=== PATIENT | male | born 1990 | race Caucasian/White ===

== ENCOUNTER 2018-03-03 18:34 | Emergency (ER) | payer OTHER ==
[2018-03-03] MEDS ORDERED: KETOROLAC 30 MG/ML 1 ML VIAL IVP STA (18:53)
[2018-03-03] MEDS ORDERED: SODIUM CHLORIDE 0.9% 1,000 ML IV ONE (18:53)
[2018-03-03] MEDS ORDERED: ONDANSETRON 4 MG/2 ML VIAL IVP STA (18:53)
--- NOTE | 2018-03-03 18:56 | ED ---
Abdominal Pain HPI - General Chief Complaint: Abdominal Pain Stated Complaint: kidney stones Time Seen by Provider: 03/03/18 18:48 Source: patient Mode of arrival: ambulatory Limitations: no limitations - History of Present Illness Initial Comments: 27-year-old male presenting with 3 days of right flank pain radiating to his right lower quadrant. Patient states it's been accompanied by urinary hesitancy and nausea. He states the pain is sharp stabbing has been gradually worsening. Patient states he has a history of 3 lithotripsies and stent placement. This was last done 6 months prior. Denies any fevers chills. Denies any hematuria. - Related Data Previous Rx's Medication Instructions Recorded Ibuprofen [Motrin] 600 mg PO Q6HR PRN #20 tab 03/03/18 Allergies Allergy/AdvReac Type Severity Reaction Status Date / Time Penicillins Allergy Unknown Verified 03/03/18 18:45 Review of Systems ROS Statement: Those systems with pertinent positive or pertinent negative responses have been documented in the HPI. Review of Systems Constitutional: Denies fever, chills Eyes: Denies change in vision, Denies pain Ears, nose, mouth, throat: Denies headaches, Denies sore throat Cardiovascular: Denies chest pain. Denies palpitations Respiratory: Denies shortness of breath, Denies cough Gastrointestinal: Positive abdominal pain. Denies nausea, vomiting, diarrhea. Genitourinary: Denies hematuria, Denies infections. Positive dysuria Musculoskeletal: Positive flank pain, Denies swelling Integumentary: Denies rash Neurological: Denies headache, focal weakness, focal numbness Psychiatric: Denies anxiety, Denies depression Hematologic/Lymphatic: Denies easy bleeding or bruising ROS Other: All systems not noted in ROS Statement are negative. Past Medical History Additional Past Medical History / Comment(s): kidney stone History of Any Multi-Drug Resistant Organisms: None Reported Past Surgical History: Appendectomy Additional Past Surgical History / Comment(s): lithotripsy Past Psychological History: No Psychological Hx Reported Smoking Status: Current some day smoker Past Alcohol Use History: None Reported Past Drug Use History: Marijuana General Exam - General Exam Comments Initial Comments: General: Awake, alert, No acute Distress HENT: Normocephalic. Atraumatic Eyes: PERRL. EOMI. No scleral icterus. No injected conjunctiva Neck: Full ROM Chest/Lungs: Clear to auscultation bilaterally. No wheezing, rhonchi, or rales Cardiac: Regular rate, rhythm. No murmurs or rubs Abdomen/GI: Soft, nontender, nondistended. No rebound, guarding, or rigidity.Positive Murali's sign on right. CVA tenderness on right. Musculoskeletal: Full ROM Skin: Warm, dry, intact Neurologic: A/Ox3, no weakness, no sensory deficit, no abdnormal gait, no coordination deficit Limitations: no limitations Course Vital Signs 03/03/18 18:45 Temperature 97.9 F Pulse Rate 78 Respiratory 18 Rate Blood Pressure 123/76 O2 Sat by Pulse 99 Oximetry Medical Decision Making - Medical Decision Making 27-year-old male presenting with right flank pain. Initial exam the patient is a week, alert, no acute distress. VSS. Patient is a history of kidney stones. A CT renal stone was done which showed a nonobstructing right renal calculus. Laboratory workup revealed a mild leukocytosis but was otherwise negative. After patient's workup he disclosed that he was in rehab for drug and alcohol abuse. Patient denies any trauma while he's been there. His pain improved with Toradol. At this time there is no evidence of serious etiology such as spinal epidural abscess, cauda equina syndrome, or intra-abdominal process. The patient is afebrile and nontoxic appearing. No further emergent workup indicated. The patient was given return to ED instructions. They were instructed to follow up with their primary care provider. Stable for discharge at this time. - Lab Data Result diagrams: 03/03/18 19:14 03/03/18 19:14 Lab Results 03/03/18 03/03/18 03/03/18 Range/Units 19:14 19:14 20:25 WBC 11.2 H (3.8-10.6) k/uL RBC 4.79 (4.30-5.90) m/uL Hgb 14.0 (13.0-17.5) gm/dL Hct 41.8 (39.0-53.0) % MCV 87.2 (80.0-100.0) fL MCH 29.2 (25.0-35.0) pg MCHC 33.4 (31.0-37.0) g/dL RDW 12.7 (11.5-15.5) % Plt Count 358 (150-450) k/uL Neutrophils % 80 % Lymphocytes % 15 % Monocytes % 4 % Eosinophils % 0 % Basophils % 0 % Neutrophils # 8.9 H (1.3-7.7) k/uL Lymphocytes # 1.7 (1.0-4.8) k/uL Monocytes # 0.4 (0-1.0) k/uL Eosinophils # 0.0 (0-0.7) k/uL Basophils # 0.0 (0-0.2) k/uL Sodium 140 (137-145) mmol/L Potassium 4.4 (3.5-5.1) mmol/L Chloride 103 (98-107) mmol/L Carbon Dioxide 25 (22-30) mmol/L Anion Gap 12 mmol/L BUN 13 (9-20) mg/dL Creatinine 0.82 (0.66-1.25) mg/dL Est GFR (CKD-EPI)AfAm >90 (>60 ml/min/1.73 sqM) Est GFR (CKD-EPI)NonAf >90 (>60 ml/min/1.73 sqM) Glucose 103 H (74-99) mg/dL Calcium 10.6 H (8.4-10.2) mg/dL Urine Color Light Yellow Urine Appearance Clear (Clear) Urine pH 6.5 (5.0-8.0) Ur Specific [place] 1.010 (1.001-1.035) Urine Protein Negative (Negative) Urine Glucose (UA) Negative (Negative) Urine Ketones 1+ H (Negative) Urine Blood Negative (Negative) Urine Nitrite Negative (Negative) Urine Bilirubin Negative (Negative) Urine Urobilinogen <2.0 (<2.0) mg/dL Ur Leukocyte Esterase Negative (Negative) Disposition Clinical Impression: Right flank pain, Dehydration Disposition: HOME SELF-CARE Condition: Good Instructions: Flank Pain (ED), Back Pain (ED) Prescriptions: Ibuprofen [Motrin] 600 mg PO Q6HR PRN #20 tab PRN Reason: Pain Is patient prescribed a controlled substance at d/c from ED?: No Referrals: Shin Vines MD [STAFF PHYSICIAN] - 1-2 days
--- NOTE | 2018-03-03 19:22 | CT ---
EXAMINATION TYPE: CT renal stones wo con DATE OF EXAM: 03/03/2018 HISTORY: right flank pain, hx of stones CT DLP: 246.0 mGycm. Automated Exposure Control for Dose Reduction was Utilized. TECHNIQUE: CT scan of the abdomen and pelvis is performed without oral or IV contrast. COMPARISON: None FINDINGS: Within the limitations of a non-contrast study, the following observations are made. Lung bases are clear. There is no pleural effusion. Heart size is normal. Liver spleen pancreas gallbladder appear normal. Bile ducts are not dilated. There is no adrenal mass. Kidneys have normal size and contour. There is 1 mm calculus in the posteri or right kidney. There is no retroperitoneal adenopathy. There is no hydronephrosis. I see no intestinal wall thickening. There are no dilated loops. There are clips probably from append ectomy. Bladder distends smoothly. There is no pelvic mass. There is no ascites. There is no sign of free air. The bony structures appear intact. IMPRESSION: Nonobstructing right renal calculus. No evidence of renal obstruction. Nonacute abdomen.
[2018-03-03 19:28] LABS: Basophils % (A) 0 %; Eosinophils % (A) 0 %; HCT 41.8 % (39.0-53.0); Lymphocytes # (A) 1.7 k/uL (1.0-4.8); Lymphocytes % (A) 15 %; MCH 29.2 pg (25.0-35.0); MCHC 33.4 g/dL (31.0-37.0); MCV 87.2 fL (80.0-100.0); Mean Platelet Volume 6.3; Monocytes # (A) 0.4 k/uL (0-1.0); Monocytes % (A) 4 %; Neutrophils # (A) 8.9 k/uL (1.3-7.7); Neutrophils % (A) 80 %; Platelet Count 358 k/uL (150-450); RBC 4.79 m/uL (4.30-5.90); RDW 12.7 % (11.5-15.5); WBC 11.2 k/uL (3.8-10.6)
[2018-03-03 19:37] LABS: Anion Gap 12 mmol/L; Blood Urea Nitrogen 13 mg/dL (9-20); Calcium 10.6 mg/dL (8.4-10.2); Carbon Dioxide 25 mmol/L (22-30); Chloride 103 mmol/L (98-107); Glucose 103 mg/dL (74-99); Potassium 4.4 mmol/L (3.5-5.1); Sodium 140 mmol/L (137-145)
[2018-03-03 20:31] LABS: Appearance,Urine Clear (Clear); Bilirubin,Urine Negative (Negative); Blood,Urine Negative (Negative); Color,Urine Light Yellow; Glucose,Urine (UA) Negative (Negative); Ketones,Urine 1+ (Negative); Leukocyte Esterase,Urine Negative (Negative); Nitrite,Urine Negative (Negative); PH, Urine 6.5 (5.0-8.0); Protein,Urine Negative (Negative); Urobilinogen,Urine <2.0 mg/dL (<2.0)
[2018-03-03 21:05] VITALS: BP 133/59; PULSE 66; RESP 16; TEMP 98.4
== END 2018-03-03 21:05 | disposition home or self-care (01) ==
LOC: EC 18:34
DX: E86.0 Dehydration (principal); R10.9 Unspecified abdominal pain; R11.0 Nausea; R39.11 Hesitancy of micturition; N20.0 Calculus of kidney; F17.200 Nicotine dependence, unspecified, uncomplicated; Z90.49 Acquired absence of other specified parts of digestive tract; Z88.0 Allergy status to penicillin
CPT/HCPCS: 36415; 80048; 85025; 81003; 74150; 99284; 96374; 96375; 96361; J2405; J1885